=== PATIENT | female | born 1990 | race African-American/Black ===

== ENCOUNTER 2016-08-04 02:55 | Emergency (ER) | payer BC ==
[2016-08-04 03:10] VITALS: BMI 35.0
--- NOTE | 2016-08-04 03:24 | DR.GENAD ---
HPI - PCP Primary Care Physician: nfd - HPI Comment HPI Comment: ABDOMINAL PAIN WITH NAUSEA AND ANOREXIA TIMES TWO WEEKS. RECENTLY TREATED FOR PELVIC INFECTION WITH CIPRO. WORSE TONIGHT. PAIN CAUSING HER NOT TO GO TO SLEEP. NO FEVER OR DYSURIA. - Complaint/Symptoms Chief Complaint Doctors Comments: ABDOMINAL PAIN. Chief Complaint:: stomach pain 1-2 weeks can't hardly eat hurts when breathing Self Treatment fo Chief Complaint: been on cipro for pelvic infection - Nurses notes reviewed Nurses Notes Review: Yes - Source History Provided: Patient - Mode of Arrival Mode of Arrival: Ambulatory - Timing Onset of Chief Complaint: 07/21/16 Came on: Suddenly - Duration Duration: Constant Duration: Days - Severity Severity: Moderate PMH - PMH Past Medical History: Yes Past Medical History: Arthritis, Diabetes, Hypertension Past Surgical History: Yes Surgical History: [employer] Surgery Past Surgical History Comment: DNC - Family History History of Family Medical Conditions: Yes Family Medical History: Diabetes Mellitus, Cancer, Hypertension - Social History Does patient currently use any type of tobacco product: No Have you used tobacco products in the last 12 months: No Type of Tobacco Use: None Does any household member use tobacco: No Alcohol Use: None Do you use any recreational Drugs:: No Lives With: Dad, Mom Lives Where: Home - infectious screening In the last 2 months have you had wt loss of >10#?: NO Have you had fever, night sweats or hemotysis?: No Have you traveled outside the country in the last 6 months?: No Isolation: Standard ROS - Review of Systems Constitutional: Weakness, Fatigue, Loss of Appetite. negative: Chills, Fever Eyes: No Symptoms Reported ENTM: No Symptoms Reported Respiratoy: No Symptoms Reported Cardiovascular: No Symptoms Reported Gastrointestinal/Abdominal: Abdominal Pain, Nausea Genitourinary: No Symptoms Reported. negative: Dysuria, Frequency, Hematuria Neurological: No Symptoms Reported Musculoskeletal: Back Pain, Muscle Pain Integumentary: No Symptoms Reported Hematologic/Lymphatic: No Symptoms Reported Endocrine: No Symptoms Reported All Other Systems: Reviewed and Negative PE - Vital Signs Vitals: Temperature 97.9 F Pulse Rate [Left Brachial] 80 Pulse Rate 84 Respiratory Rate 16 Blood Pressure [Left Arm] 125/68 Blood Pressure 120/65 O2 Sat by Pulse Oximetry 100 - General Limitations: No Limitations General Appearance: Alert - Head Head Exam: Normal Inspection - Eyes Eye exam: Normal Appearance - ENT ENT Exam: Normal External Ear Exam External Ear Exam: Normal External Inspection TM/Canal Exam: Bilateral Normal Nose Exam: Normal Nose Exam Mouth Exam: Normal Inspection Throat Exam: Normal Inspection - Neck Neck Exam: Trachea Midline - Chest Chest Inspection: Symmetric Chest Wall Rise - Respiratory Respiratory Exam: Normal Lung Sounds Bilat Respiratory Exam: Bilateral Clear to Auscultation - Cardiovascular Cardiovascular Exam: Regular Rate, Normal Rhythm, Normal Heart Sounds - Abdominal Exam Abdominal Exam: Normal Bowel Sounds, Soft, Tenderness Abdominal Tenderness: Epigastrium, Diffuse - Extremities Extremities Exam: Normal Inspection - Back Back Exam: Normal Inspection - Neurologic Neurological Exam: Alert, Oriented X3 - Psychiatric Psychiatric Exam: Anxious - Skin Skin Exam: Normal Color MDM - Differential Diagnosis Differential Diagnosis: ABDOMINAL PAIN, GASTRITIS, UTI, PUD, CHOLELITHISIS, KIDNEY STONE Course - Treatment Treatment: SEE ORDERS - Reevaluation 1st: Improved (PEPCID AND GI COCKTAIL. PAIN DECREASING.) - Education/Counseling Education/Counseling: Patient, Education Educated On: Treatment, Diagnosis, Needs for Follow Up ROR - Labs Reviewed Laboratory Results Reviewed?: Yes Result Diagrams: 08/04/16 03:44 08/04/16 03:44 Laboratory: WBC 10.1 X10^3/uL (3.6-10.0) H 08/04/16 03:44 RBC 4.61 X10^6/uL (3.5-5.4) 08/04/16 03:44 Hgb 12.0 g/dL (12.0-16.0) 08/04/16 03:44 Hct 37.5 % (36.0-47.0) 08/04/16 03:44 MCV 81.4 fL (80.0-100.0) 08/04/16 03:44 MCH 26.0 pg (27.0-34.0) L 08/04/16 03:44 MCHC 31.9 g/dL (33.0-35.0) L 08/04/16 03:44 RDW 13.1 % (11.6-16.5) 08/04/16 03:44 Plt Count 282 X10^3/uL (150.0-450.0) 08/04/16 03:44 MPV 8.9 fL (7.4-11.0) 08/04/16 03:44 Neut % 62.7 % (42.0-75.0) 08/04/16 03:44 Lymph % 27.2 % (21.0-51.0) 08/04/16 03:44 [place] % 8.9 % (0.0-13.0) 08/04/16 03:44 Eos % 0.7 % (0.9-2.9) L 08/04/16 03:44 Baso % 0.5 % (0.2-1.0) 08/04/16 03:44 Neut # 6.4 x10^3/uL (2.2-4.8) H 08/04/16 03:44 Lymph # 2.8 X10^3/uL (1.3-2.9) 08/04/16 03:44 [place] # 0.9 x10^3/uL (0.3-0.8) H 08/04/16 03:44 Eos # 0.1 x10^3/uL (0.0-0.2) 08/04/16 03:44 Baso # 0.1 X10^3/uL (0.0-0.1) 08/04/16 03:44 Absolute Nucleated RBC 0.0 /100WBC 08/04/16 03:44 Sodium 143 mmol/L (136-145) 08/04/16 03:44 Corrected Sodium TNP 08/04/16 03:44 Potassium 3.7 mmol/L (3.5-5.1) 08/04/16 03:44 Chloride 104 mmol/L (98-107) 08/04/16 03:44 Carbon Dioxide 30.0 mmol/L (21-32) 08/04/16 03:44 BUN 13 mg/dL (7-18) 08/04/16 03:44 Creatinine 0.99 mg/dL (0.55-1.02) 08/04/16 03:44 Est GFR (MDRD) Af Amer > 60 (>60) 08/04/16 03:44 Est GFR (MDRD) Non-Af > 60 (>60) 08/04/16 03:44 Glucose 106 mg/dL (65-99) H 08/04/16 03:44 Calcium 8.8 mg/dL (8.5-10.1) 08/04/16 03:44 Corrected Calcium 9.4 mg/dL (8.5-10.1) 08/04/16 03:44 Total Bilirubin 0.50 mg/dL (0.2-1.0) 08/04/16 03:44 AST 12 Units/L (15-37) L 08/04/16 03:44 ALT 16 Units/L (12-78) 08/04/16 03:44 Alkaline Phosphatase 79 Units/L (46-116) 08/04/16 03:44 Total Protein 7.5 g/dL (6.4-8.2) 08/04/16 03:44 Albumin 3.2 g/dL (3.4-5.0) L 08/04/16 03:44 Globulin 4.3 g/dL (2.5-4.5) 08/04/16 03:44 Albumin/Globulin Ratio 0.7 Ratio (1.1-2.1) L 08/04/16 03:44 Amylase 55 Units/L (25-115) 08/04/16 03:44 Lipase 129 Units/L (73-393) 08/04/16 03:44 Specimen Type Clean catch urine 08/04/16 03:22 Urine Color Yellow (YELLOW) 08/04/16 03:22 Urine Appearance Hazy (CLEAR) 08/04/16 03:22 Urine pH 5.0 (5.0 - 8.0) 08/04/16 03:22 Ur Specific [place] 1.025 (1.000-1.030) 08/04/16 03:22 Urine Protein 2+ (NEGATIVE) 08/04/16 03:22 Urine Glucose (UA) Negative (NEGATIVE) 08/04/16 03:22 Urine Ketones Negative (NEGATIVE) 08/04/16 03:22 Urine Occult Blood 4+ (NEGATIVE) 08/04/16 03:22 Urine Nitrite Negative (NEGATIVE) 08/04/16 03:22 Urine Bilirubin Negative (NEGATIVE) 08/04/16 03:22 Urine Urobilinogen 1+ (NORMAL) 08/04/16 03:22 Ur Leukocyte Esterase 1+ (NEGATIVE) 08/04/16 03:22 Urine RBC 2-6 /HPF (NEGATIVE) 08/04/16 03:22 Urine WBC 5-10 /HPF (NEGATIVE) 08/04/16 03:22 Ur Squamous Epith Cells Few /HPF (NEGATIVE) 08/04/16 03:22 Calcium Oxalate Crystal Rare /HPF (NEGATIVE) 08/04/16 03:22 Urine Bacteria 1+ /HPF (NEGATIVE) 08/04/16 03:22 Urine Mucus Few /HPF (NEGATIVE) 08/04/16 03:22 Ur Culture Indicated? Yes/culture set up 08/04/16 03:22 H. pylori IgG Antibody Negative (NEGATIVE) 08/04/16 03:44 - Diagnosis Discharge Problem: Abdominal pain Qualifiers: Abdominal location: generalized Qualified Code(s): R10.84 - Generalized abdominal pain UTI (urinary tract infection) Qualifiers: Urinary tract infection type: site unspecified Hematuria presence: without hematuria Qualified Code(s): N39.0 - Urinary tract infection, site not specified - Discharge Plan Disposition: 01 HOME, SELF-CARE Condition: Stable Prescriptions: Ranitidine HCl [ZANTAC TAB 150 MG *] 150 mg PO BID #60 tab Sulfamethoxazole-Trimethoprim [BACTRIM DS TAB 800/160 MG *] 1 tab PO BID #20 tab - Follow ups/Referrals Follow ups/Referrals: NFD,None [Primary Care Provider] - 3 days - Instructions Instructions: Abdominal Pain, Adult, [id number], Urinary Tract Infection, [id number] Additional Instructions: RETURN TO ED IF WORSE.
[2016-08-04] MEDS ORDERED: LEVSIN/MAALOX/LIDOC VISC PO ONE (03:30)
[2016-08-04] MEDS ORDERED: PEPCID TAB 20 MG PO ONE (03:31)
[2016-08-04 03:38] LABS: BILIRUBIN,URINE NEGATIVE (NEGATIVE); BLOOD/HEMOGLOBIN,URINE 4+ (NEGATIVE); GLUCOSE, URINE NEGATIVE (NEGATIVE); KETONES,URINE NEGATIVE (NEGATIVE); LEUKOCYTE ESTERASE ,URINE 1+ (NEGATIVE); NITRITES,URINE NEGATIVE (NEGATIVE); PROTEIN,URINE 2+ (NEGATIVE); UROBILINOGEN,URINE 1+ (NORMAL)
[2016-08-04] MEDS ORDERED: PEPCID TAB 20 MG ONE (03:39)
[2016-08-04] MEDS ORDERED: LEVSIN/MAALOX/LIDOC VISC ONE (03:39)
[2016-08-04 03:58] LABS: BASOPHILS # (AUTO) 0.1 X10^3/uL (0.0-0.1); BASOPHILS % (AUTO) 0.5 % (0.2-1.0); EOSINOPHILS # (AUTO) 0.1 x10^3/uL (0.0-0.2); EOSINOPHILS % (AUTO) 0.7 % (0.9-2.9); HEMATOCRIT 37.5 % (36.0-47.0); LYMPHOCYTES # (AUTO) 2.8 X10^3/uL (1.3-2.9); LYMPHOCYTES % (AUTO) 27.2 % (21.0-51.0); MEAN CORPUSCULAR HGB CONC 31.9 g/dL (33.0-35.0); MEAN CORPUSCULAR VOLUME 81.4 fL (80.0-100.0); MEAN PLATELET VOLUME 8.9 fL (7.4-11.0); MONOCYTES # (AUTO) 0.9 x10^3/uL (0.3-0.8); MONOCYTES % (AUTO) 8.9 % (0.0-13.0); NEUTROPHILS # (AUTO) 6.4 x10^3/uL (2.2-4.8); NEUTROPHILS % (AUTO) 62.7 % (42.0-75.0); PLATELET COUNT 282 X10^3/uL (150.0-450.0); RED BLOOD COUNT 4.61 X10^6/uL (3.5-5.4); RED CELL DISTRIBUTION WIDTH 13.1 % (11.6-16.5); WHITE BLOOD COUNT 10.1 X10^3/uL (3.6-10.0)
[2016-08-04 04:05] LABS: ALANINE AMINOTRANSFERASE 16 Units/L (12-78); ALBUMIN 3.2 g/dL (3.4-5.0); ALKALINE PHOSPHATASE 79 Units/L (46-116); AMYLASE 55 Units/L (25-115); ASPARTATE AMINO TRANSFERASE 12 Units/L (15-37); BLOOD UREA NITROGEN 13 mg/dL (7-18); CALCIUM 8.8 mg/dL (8.5-10.1); CHLORIDE 104 mmol/L (98-107); COR CA(FOR HYPOALB) 9.4 mg/dL (8.5-10.1); CREATININE 0.99 mg/dL (0.55-1.02); GLUCOSE 106 mg/dL (65-99); LIPASE 129 Units/L (73-393); SODIUM 143 mmol/L (136-145); TOTAL PROTEIN 7.5 g/dL (6.4-8.2); eGFR BLACK RACES > 60 (>60); eGFR NON BLACK RACES > 60 (>60)
[2016-08-04 04:17] LABS: APPEARANCE,URINE HAZY (CLEAR); COLOR,URINE YELLOW (YELLOW); SQUAMOUS EPITHELIAL CELL,UR FEW /HPF (NEGATIVE)
[2016-08-04 04:18] LABS: BACTERIA,URINE 1+ /HPF (NEGATIVE); CALCIUM OXALATE CRYSTALS,UR RARE /HPF (NEGATIVE); MUCUS,URINE FEW /HPF (NEGATIVE)
[2016-08-04] MEDS ORDERED: BACTRIM DS TAB PO ONE ×2 (04:35→04:40)
[2016-08-04 04:59] VITALS: BP 125/68
== END 2016-08-04 05:05 | disposition home or self-care (01) ==
LOC: ER 02:55
DX: N39.0 Urinary tract infection, site not specified (principal); R10.84 Generalized abdominal pain
CPT/HCPCS: 36415; 80053; 81001; 82150; 83690; 85025; 86677; 87086; 99282; 99283

== ENCOUNTER → 2016-09-08 | Outpatient (CLI) | payer BC ==
[~2016-09-08] MED LIST: NS 100 ML IV 100 ML IV ONE
--- NOTE | 2016-09-08 09:37 | CT ---
HISTORY: Followup abnormal CT from May 2014. Study: CT abdomen and pelvis with contrast Comparison: Multiple CTs of the abdomen/pelvis dating back to April 08, 2014. Technique: Multiple axial images of the abdomen and pelvis were obtained from the lung bases to the pubic symph ysis after the administration of IV contrast. Dose reduction techniques including Automated Exposur e Control (AEC) and adjustment of mA and kV were utilized. Findings: The visualized portions of the lung bases are unremarkable. The liver, spleen, pancreas, kidneys, a nd adrenal glands are unremarkable in their CT appearance. The gallbladder is unremarkable in its CT appearance. Multiple stable appearing mesenteric lymph nodes. None of these meet criteria for patho logic lymphadenopathy. These appear unchanged since CT abdomen/pelvis dated May 2014. No signif icant pathologic mesenteric lymphadenopathy or stranding can be observed. No free fluid or free air is seen within the abdomen. The visualized large and small bowel appear normal. The appendix is no rmal. 1.8 cm dominant follicle within the right ovary. The uterus and ovaries are otherwise unremark able. The urinary bladder is grossly unremarkable. The bony structures are grossly intact. IMPRESSION: No CT evidence of acute abdominal/pelvic pathology. Reported By:
== END ==
LOC: RAD 08:48
PROVIDERS: ATTEND Nurse Practitioner Family
DX: R93.5 Abnormal findings on diagnostic imaging of other abdominal regions, including retroperitoneum (principal)
CPT/HCPCS: 74177; A4222

== ENCOUNTER → 2017-01-29 | Outpatient (CLI) | payer BC ==
--- NOTE | 2017-01-30 08:25 | RAD ---
History: Chronic low back pain Study: AP and both obliques and lateral and spot views lateral of the lumbar spine Comparison: MRI lumbar spine dated April 08, 2014 Findings: There is normal alignment without fracture or compression or disc space narrowing or osteop hyte formation about the disc spaces. The sacroiliac joints are unremarkable. Impression: Negative Reported By:
== END ==
LOC: RAD 16:26
PROVIDERS: ATTEND Nurse Practitioner Family
DX: M54.5 Low back pain (principal)
CPT/HCPCS: 72110

== ENCOUNTER → 2017-02-07 | Outpatient (CLI) | payer BC ==
--- NOTE | 2017-02-07 13:11 | MRI ---
HISTORY: Chronic low back pain. Study: Magnetic resonance imaging of the lumbar spine: Multiplanar multisequence magnetic resonance imaging of lumbar spine was performed on a closed magnet.. Comparison: Prior MRI of the lumbar spine 04/08/2014 plain films of the lumbar spine 01/29/2017 Findings: The paraspinal soft tissues demonstrate what is seen of the kidneys to be normal. No evidence of an a bdominal aortic aneurysm or retroperitoneal lymph node enlargement is identified. A large amount of s tool is noted in the sigmoid colon and region of the rectum. There appears to be probable ovarian cys ts bilaterally. The sagittal images demonstrate normal curvature and alignment. Moderate disc desiccation and minimal disc space narrowing is present at L5/S1. The marrow signal intensity is homogeneous. I see no evide nce of marrow edema that would suggest fracture . The conus is of normal size, signal intensity and l ocation terminating at approximately L1. T10/T11: No significant abnormalities. T11/T12: No significant abnormalities. T12/L1: No significant abnormalities. L1/L2: Mild facet arthropathy. No other significant abnormalities. L2/L3: Mild facet arthropathy. No other significant abnormalities. L3/L4: Mild facet arthropathy. No other significant abnormalities. L4/L5: [id number] facet arthropathy. No other significant abnormalities. L5/S1. There is a moderate-sized central disc protrusion/annular tear mildly effacing the anterior th ecal sac. It is producing minimal lateral recess stenosis. No evidence of neural impingement is noted . IMPRESSION: 1. Lumbar spondylosis as described above. 2. This predominates at L5/S1 where there has been development of a moderate-sized central disc protr usion/annular tear effacing the thecal sac. I see no evidence of neural impingement. Reported By:
== END | disposition home or self-care (01) | DRG 552 ==
LOC: RAD 10:05
PROVIDERS: ATTEND Nurse Practitioner Family
DX: M54.5 Low back pain (principal); M47.896 Other spondylosis, lumbar region
CPT/HCPCS: 72148

== ENCOUNTER → 2017-05-24 | Outpatient (CLI) | payer OTHER ==
--- NOTE | 2017-05-25 06:46 | RAD ---
Examination: Thoracic spine, AP and lateral views History: Back pain, scoliosis Findings: Normal segmentation and alignment. There is an S shaped biphasic thoracolumbar scoliosis, l ower thoracic dextro curvature with corresponding levoscoliosis of the lumbar spine. No fracture or b one destruction or paraspinal mass. Impression: Thoracolumbar scoliosis. Normal otherwise. Reported By:
--- NOTE | 2017-05-25 07:44 | RAD ---
Examination: Lumbar spine, five views History: Back pain, scoliosis paragraph findings: There is a slight levocurvature of the lumbar spine . Alignment is normal. Vertebral bodies, disc spaces and sacroiliac joints are normal. Impression: Slight lumbar curvature, essentially negative examination. Reported By:
== END | disposition home or self-care (01) | DRG 552 ==
LOC: RAD 15:10
PROVIDERS: ATTEND Nurse Practitioner Family
DX: M54.5 Low back pain (principal); M54.6 Pain in thoracic spine; M41.85 Other forms of scoliosis, thoracolumbar region
CPT/HCPCS: 72072; 72110